=== PATIENT | male | born 1985 | race Caucasian/White ===

== ENCOUNTER 2019-07-01 11:02 | Emergency (ER) | payer BC ==
[~2019-07-01] VITALS: Ht 175.3 cm; Wt 92.0 kg
[2019-07-01 11:27] VITALS: BP 151/96
--- NOTE | 2019-07-01 12:02 | PHYS DOC ---
Past Medical History Past Medical History: No Pertinent History Past Surgical History: No Surgical History Smoking Status: Current Every Day Smoker Alcohol Use: None Adult General Chief Complaint Chief Complaint: BACK PAIN OR INJURY HPI HPI Patient is a 33 year old male with no significant medical history who presents to the ED today complaining of 6 out of 10 throbbing intermittent right mid and low back pain that began today after moving a washer up some steps. Patient denies falling. Denies any pain radiating to bilateral lower extremities. Denies any loss of bowel bladder function. He reports most of the pain is worse on movement. Denies anything specifically alleviating the pain. Review of Systems Review of Systems Constitutional: Denies fever or chills [] GI: Denies abdominal pain, nausea, vomiting, bloody stools or diarrhea [] : Denies dysuria or hematuria [] Musculoskeletal: Reports right mid and low back pain. Integument: Denies rash or skin lesions [] Neurologic: Denies headache, focal weakness or sensory changes [] All other systems were reviewed and found to be within normal limits, except as documented in this note. Allergies Allergies Allergies Coded Allergies Type Severity Reaction Last Updated Verified No Known Drug Allergies 07/01/19 No Physical Exam Physical Exam Constitutional: Well developed, well nourished, no acute distress, non-toxic appearance. [] Abdomen: Bowel sounds normal, soft, no tenderness, no masses, no pulsatile masses. [] Skin: Warm, dry, no erythema, no rash. [] Back: Diffuse paraspinal muscle tenderness to the right thoracic and right lumbar spine region, no midline thoracic and lumbar spine tenderness, no CVA tenderness. [] Extremities: No tenderness, no cyanosis, no clubbing, ROM intact, no edema. [] Neurologic: Alert and oriented X 3, normal motor function, normal sensory function, no focal deficits noted. [] Psychologic: Affect normal, judgement normal, mood normal. [] Current Patient Data Vital Signs Vital Signs Date Time Temp Pulse Resp B/P (MAP) Pulse Ox O2 Delivery O2 Flow Rate FiO2 07/01/19 11:27 98.4 83 16 151/96 (114) 97 Room Air 98.4 EKG EKG [] Radiology/Procedures Radiology/Procedures []PROCEDURE: LUMBAR SPINE 2-3V Thoracic spine x-rays 3 views HISTORY: Back pain after lifting injury. Findings: There is mild S-shaped thoracic scoliosis. Thoracic vertebral body height and alignment intact. Thoracic intervertebral disc height preserved. No fracture evident. No paraspinal stripe widening. IMPRESSION: No acute osseous injury. Thoracic scoliosis. Lumbar spine x-rays 3 views HISTORY: Back pain after lifting injury. FINDINGS: No fracture. Lumbar vertebral body height and alignment intact. Mild anterior endplate spurring at L2-L3 and L5-S1 of the lumbar spine. Mild posterior disc space narrowing at L3-L4 through L5-S1. Mild foci of air indicating vacuum disc phenomenon at the anterior L2-L3 through L4-5 discs. IMPRESSION: No acute osseous injury. Changes of lumbar disc disease. Electronically signed by: Walter Garcia MD (07/01/2019 12:39 PM) [id number] DICTATED and SIGNED BY: WALTER GARCIA MD DATE: 07/01/191238 PROCEDURE: THORACIC SPINE 3V Thoracic spine x-rays 3 views HISTORY: Back pain after lifting injury. Findings: There is mild S-shaped thoracic scoliosis. Thoracic vertebral body height and alignment intact. Thoracic intervertebral disc height preserved. No fracture evident. No paraspinal stripe widening. IMPRESSION: No acute osseous injury. Thoracic scoliosis. Lumbar spine x-rays 3 views HISTORY: Back pain after lifting injury. FINDINGS: No fracture. Lumbar vertebral body height and alignment intact. Mild anterior endplate spurring at L2-L3 and L5-S1 of the lumbar spine. Mild posterior disc space narrowing at L3-L4 through L5-S1. Mild foci of air indicating vacuum disc phenomenon at the anterior L2-L3 through L4-5 discs. IMPRESSION: No acute osseous injury. Changes of lumbar disc disease. Electronically signed by: Walter Garcia MD (07/01/2019 12:39 PM) [id number] DICTATED and SIGNED BY: WALTER GARCIA MD DATE: 07/01/191238 Course & Med Decision Making Course & Med Decision Making Pertinent Labs and Imaging studies reviewed. (See chart for details) This is a 33-year-old male patient presenting to the ED today with mid and low back pain that began this morning after lifting a washer. Patient himself requested x-rays. Thoracic and lumbar spine x-rays are negative for any acute findings. Discharged to home. Dragon Disclaimer Dragon Disclaimer This electronic medical record was generated, in whole or in part, using a voice recognition dictation system. Departure Departure Impression: Primary Impression: Acute thoracic myofascial strain Additional Impression: Acute lumbosacral myofascial strain Disposition: 01 HOME, SELF-CARE Condition: STABLE Referrals: NO PCP (PCP) follow up with your doctor in 1-2 weeks Patient Instructions: Lumbosacral Strain, Thoracic Strain, [id number] Additional Instructions: You were seen in the emergency room for back pain consistent with muscle strain. You can apply ice to the affected area or heat if you want to. Take the prescribed medications as orderded. Follow up with your doctor in 1-2 weeks Scripts Diclofenac Potassium (DICLOFENAC POTASSIUM) 50 Mg Tablet 1 TAB PO BID, #20 TAB 0 Refills Prov: NICOL MCMILLAN APRN 07/01/19 Cyclobenzaprine Hcl (CYCLOBENZAPRINE HCL) 10 Mg Tablet 1 TAB PO TID, #30 TAB Prov: NICOL MCMILLAN APRN 07/01/19 Methylprednisolone (MEDROL) 4 Mg Tab.ds.pk 1 PKG PO UD, #1 PKG Prov: NICOL MCMILLAN APRN 07/01/19 Problem Qualifiers Primary Impression: Acute thoracic myofascial strain Encounter type: initial encounter Qualified Codes: S29.019A - Strain of muscle and tendon of unspecified wall of thorax, initial encounter Additional Impression: Acute lumbosacral myofascial strain Encounter type: initial encounter Qualified Codes: S39.012A - Strain of muscle, fascia and tendon of lower back, initial encounter NICOL MCMILLAN APRN Jul 01, 2019 12:02
--- NOTE | 2019-07-01 12:42 | RAD ---
Thoracic spine x-rays 3 views HISTORY: Back pain after lifting injury. Findings: There is mild S-shaped thoracic scoliosis. Thoracic vertebral body height and alignment intact. Thoracic intervertebral disc height preserved. No fracture evident. No paraspinal stripe widening. IMPRESSION: No acute osseous injury. Thoracic scoliosis. Lumbar spine x-rays 3 views HISTORY: Back pain after lifting injury. FINDINGS: No fracture. Lumbar vertebral body height and alignment intact. Mild anterior endplate spurring at L2-L3 and L5-S1 of the lumbar spine. Mild posterior disc space narrowing at L3-L4 through L5-S1. Mild foci of air indicating vacuum disc phenomenon at the anterior L2-L3 through L4-5 discs. IMPRESSION: No acute osseous injury. Changes of lumbar disc disease. Electronically signed by: Walter Garcia MD (07/01/2019 12:39 PM) [id number]
[2019-07-01] MEDS ORDERED: METH4TAB2 PO (13:12)
[2019-07-01] MEDS ORDERED: CYCL10TA2 PO (13:12)
[2019-07-01] MEDS ORDERED: DICL50TA2 PO (13:12)
== END 2019-07-01 13:20 | disposition home or self-care (01) ==
LOC: ER 11:02
DX: S39.012A Strain of muscle, fascia and tendon of lower back, initial encounter (principal); S29.019A Strain of muscle and tendon of unspecified wall of thorax, initial encounter; F17.200 Nicotine dependence, unspecified, uncomplicated; X58.XXXA Exposure to other specified factors, initial encounter; Y93.89 Activity, other specified; Y92.89 Other specified places as the place of occurrence of the external cause; Y99.8 Other external cause status
CPT/HCPCS: 72072; 72100; 99284

== ENCOUNTER 2020-07-26 15:17 | Emergency (ER) | payer BC ==
[~2020-07-26] VITALS: Ht 175.3 cm; Wt 90.9 kg
[~2020-07-26 15:17] MED LIST: CYCL10TA2 PO; DICL50TA2 PO; METH4TAB2 PO
--- NOTE | 2020-07-26 16:07 | PHYS DOC ---
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 He states it hurts to stand up straight. He denies loss of bowel bladder, nausea or vomiting, numbness or tingling, focal weakness. He states he was dropped off here by a friend. He states that he has not taken any pain medications here. The pain does not radiate. Patient is up in the room walking around but slightly bent over as it hurts too bad to stand up straight. Patient states about a year ago he had the same type of injury almost in the same place. He is concerned that there is dried to his spine. 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 [] Eyes: Denies change in visual acuity. [] HENT: Denies nasal congestion or sore throat. [] Respiratory: Denies cough or shortness of breath. [] Cardiovascular: Denies chest pain or edema. [] GI: Denies abdominal pain, nausea, vomiting, bloody stools or diarrhea. [] : Denies dysuria. [] Musculoskeletal: + Right lower back pain or denies joint pain. [] Integument: Denies rash. [] Neurologic: Denies headache, focal weakness or sensory changes. [] Endocrine: Denies polyuria or polydipsia. [] Lymphatic: Denies swollen glands. [] Psychiatric: Denies depression or anxiety. [] (DANIAL HOUSE APRN) Heart Score: C/O Chest Pain: No Risk Factors: Risk Factors: DM, Current or recent (<one month) smoker, HTN, HLP, family history of CAD, obesity. Risk Scores: Score 0 - 3: 2.5% MACE over next 6 weeks - Discharge Home Score 4 - 6: 20.3% MACE over next 6 weeks - Admit for Clinical Observation Score 7 - 10: 72.7% MACE over next 6 weeks - Early Invasive Strategies (DANIAL HOUSE APRN) Allergies: Allergies: Allergies Coded Allergies Type Severity Reaction Last Updated Verified No Known Drug Allergies 07/01/19 No (DANIAL HOUSE APRN) Physical Exam: PE: Constitutional: Well developed, well nourished, no acute distress, non-toxic appearance. [] HENT: Normocephalic, atraumatic, bilateral external ears normal, oropharynx moist, no oral exudates, nose normal. [] Eyes: PERRLA, EOMI, conjunctiva normal, no discharge. [] Neck: Normal range of motion, no tenderness, supple, no stridor. [] Cardiovascular:Heart rate regular rhythm, no murmur [] Lungs & Thorax: Bilateral breath sounds clear to auscultation [] Abdomen: Bowel sounds normal, soft, no tenderness, no masses, no pulsatile masses. [] Skin: Warm, dry, no erythema, no rash. [] Back: Right lower paraspinal tenderness, no CVA tenderness. [] Extremities: No tenderness, no cyanosis, no clubbing, ROM intact, no edema. [] Neurologic: Alert and oriented X 3, normal motor function, normal sensory function, no focal deficits noted. [] Psychologic: Affect normal, judgement normal, mood normal. [] (DANIAL HOUSE APRN) Current Patient Data: Vital Signs: Vital Signs Date Time Temp Pulse Resp B/P (MAP) Pulse Ox O2 Delivery O2 Flow Rate FiO2 07/26/20 15:33 98.5 100 22 159/96 (117) 97 Room Air 98.5 (DANIAL HOUSE APRN) EKG: EKG: [] (DANIAL HOUSE APRN) Radiology/Procedures: Radiology/Procedures: [] Impression: [facility] [address] [place] [address] IMAGING REPORT Signed PATIENT: MYRNA DUTTA ACCOUNT: [id number] : 1985 LOCATION: ER AGE: 34 SEX: M EXAM STATUS: PRE ER ORD. PHYSICIAN: DANIAL HOUSE APRN REASON: pain after lifting heavy trailer PROCEDURE: LUMBAR SPINE MIN 4V Lumbar spine 5 views. HISTORY: Pain after lifting heavy trailer 5 views were taken of the lumbar spine including both obliques. Lumbar spine is in normal alignment. Oblique views do not show spondylolysis. Disc spaces are normal in height. There is minimal hypertrophic change on the anterior aspect of the vertebral bodies. IMPRESSION: 1. No fracture or acute osseous abnormality in the lumbar spine. Electronically signed by: Thomas Michelle MD (07/26/2020 4:22 PM) [id number] DICTATED and SIGNED BY: THOMAS MICHELLE MD DATE: 07/26/20 [id number] [facility] [address] [place], [place] [id number] IMAGING REPORT Signed PATIENT: MYRNA DUTTA ACCOUNT: [id number] : 1985 LOCATION: ER AGE: 34 SEX: M EXAM STATUS: PRE ER ORD. PHYSICIAN: DANIAL HOUSE APRN REASON: pain after lifting heavy trailer PROCEDURE: THORACIC SPINE 3V Exam: Thoracic spine 3 views INDICATION: Pain after heavy lifting TECHNIQUE: Swimmer's, Frontal and lateral views of the thoracic spine Comparisons: None FINDINGS: Vertebral body heights and alignment are well-maintained. No significant spondylotic change in the thoracic spine. Visualized paraspinal soft tissues are unremarkable. IMPRESSION: Unremarkable thoracic spine radiographs. Electronically signed by: Khadar Pena MD (07/26/2020 4:31 PM) [facility] DICTATED and SIGNED BY: KHADAR PENA MD DATE: 07/26/20 [id number] (DANIAL HOUSE APRN) Course & Med Decision Making: Course & Med Decision Making Pertinent Labs and Imaging studies reviewed. (See chart for details) See HPI. Paraspinal tenderness to the right side of the lower back. Patient states pain is more so with movement. No saddle paresthesias. No focal weaknesses. No swelling, bruising or focal bony spinal tenderness. Patient is given cyclobenzaprine and ibuprofen in the ED. [] (DANIAL HOUSE APRN) Dragon Disclaimer: Dragon Disclaimer: This electronic medical record was generated, in whole or in part, using a voice recognition dictation system. (DANIAL HOUSE APRN) Departure Departure Impression: Primary Impression: Lumbar back sprain Qualified Codes: S33.5XXA - Sprain of ligaments of lumbar spine, initial encounter Disposition: 01 DC HOME SELF CARE/HOMELESS Condition: STABLE Referrals: NO PCP (PCP) Patient Instructions: Low Back Sprain with Rehab[facility] Additional Instructions: Follow up with primary care provider if needed. Rest. Use a heating pad or ice. Take medication as prescribed and with food. Some medications may make you sleepy, so do not drive or drink alcohol on top of these medications. 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 I was available for consultation as needed during the patient's visit in the emergency department. I agree with the clinical impression, plan, and disposition. (MYRNA MARTINI DO) DANIAL HOUSE APRN Jul 26, 2020 16:07 MYRNA MARTINI DO Jul 26, 2020 18:54
--- NOTE | 2020-07-26 16:24 | RAD ---
Lumbar spine 5 views. HISTORY: Pain after lifting heavy trailer 5 views were taken of the lumbar spine including both obliques. Lumbar spine is in normal alignment. Oblique views do not show spondylolysis. Disc spaces are normal in height. There is minimal hypertrop hic change on the anterior aspect of the vertebral bodies. IMPRESSION: 1. No fracture or acute osseous abnormality in the lumbar spine. Electronically signed by: Thomas Michelle MD (07/26/2020 4:22 PM) [facility]
[2020-07-26 16:27] LABS: BILIRUBIN,URINE NEGATIVE (NEG); CLARITY,URINE CLEAR; COLOR,URINE YELLOW; NITRITE,URINE NEGATIVE (NEG); PROTEIN,URINE NEGATIVE (NEG-TRACE); UROBILINOGEN,URINE 0.2 mg/dL (0.2 mg/dL)
[2020-07-26] MEDS ORDERED: IBUPROFEN 200 MG TABLET. PO ONE (16:30)
[2020-07-26] MEDS ORDERED: CYCLOBENZAPRINE 10 MG TABLET. PO ONE (16:30)
--- NOTE | 2020-07-26 16:34 | RAD ---
Exam: Thoracic spine 3 views INDICATION: Pain after heavy lifting TECHNIQUE: Swimmer's, Frontal and lateral views of the thoracic spine Comparisons: None FINDINGS: Vertebral body heights and alignment are well-maintained. No significant spondylotic change in the thoracic spine. Visualized paraspinal soft tissues are unremarkable. IMPRESSION: Unremarkable thoracic spine radiographs. Electronically signed by: Khadar Rueda MD (07/26/2020 4:31 PM) [facility]
[2020-07-26 16:37] LABS: BACTERIA,URINE 0 /HPF (0-FEW); RBC,URINE 0 /HPF (0-2); WBC,URINE 0 /HPF (0-4)
[2020-07-26] MEDS ORDERED: IBUP-1007 PO (16:40)
[2020-07-26] MEDS ORDERED: CYCL5TAB PO (16:40)
[2020-07-26 17:28] VITALS: BP 137/98
== END 2020-07-26 17:27 | disposition home or self-care (01) ==
LOC: ER 15:17
DX: S33.5XXA Sprain of ligaments of lumbar spine, initial encounter (principal); F17.200 Nicotine dependence, unspecified, uncomplicated; X50.0XXA Overexertion from strenuous movement or load, initial encounter; Y93.89 Activity, other specified; Y92.89 Other specified places as the place of occurrence of the external cause; Y99.8 Other external cause status
CPT/HCPCS: 72072; 72110; 81001; 99284